=== PATIENT | female | born 1960 | race Hispanic/Latino ===

== ENCOUNTER → 2018-07-21 | Day surgery (SDC) | payer OTHER ==
[2018-07-18 13:35] LABS: BASOPHILS % 0.6 % (0.0-1.0); EOSINOPHILS # (AUTO) 0.1 (0.0-0.4); EOSINOPHILS % 1.7 % (0.0-6.0); HEMATOCRIT 36.7 % (34.2-44.1); HEMOGLOBIN 12.2 g/dL (12.0-16.0); LYMPHOCYTES # (AUTO) 2.2 (1.0-3.2); LYMPHOCYTES % 30.7 % (18.0-39.1); MEAN CORPUSCULAR HEMOGLOBIN 30.7 pg (28-32); MEAN CORPUSCULAR HGB CONC 33.2 g/dL (31-35); MEAN CORPUSCULAR VOLUME 92.2 fL (81-99); MONOCYTES # (AUTO) 0.4 (0.2-0.8); MONOCYTES % 5.8 % (4.4-11.3); NEUTROPHILS # (AUTO) 4.3 (2.1-6.9); NEUTROPHILS % 61.1 % (38.7-80.0); PLATELET COUNT 184 x10e3/uL (140-360); RED BLOOD COUNT 3.98 x10e6/uL (3.6-5.1); RED CELL DISTRIBUTION WIDTH 13.6 % (11.7-14.4)
--- NOTE | 2018-07-18 14:03 | Diagnostic Imaging Report ---
EXAMINATION: CHEST 2 VIEWS INDICATION: Preop. Right foot surgery. Foot pain. COMPARISON: None FINDINGS: TUBES and LINES: None. LUNGS: Lungs are well inflated. Lungs are clear. There is no evidence of pneumonia or pulmonary edema. PLEURA: No pleural effusion or pneumothorax. HEART AND MEDIASTINUM: The cardiomediastinal silhouette is unremarkable. BONES AND SOFT TISSUES: No acute osseous lesion. Soft tissues are unremarkable. UPPER ABDOMEN: No free air under the diaphragm. IMPRESSION: No acute thoracic abnormality. Signed by: Dr. Hua Garcia M.D. on 07/18/2018 1:59 PM
[2018-07-18 14:12] LABS: ANION GAP 13.2 mmol/L (8-16); BLOOD UREA NITROGEN 15 mg/dL (7-26); BUN/CREATININE RATIO 22 (6-25); CALCIUM 9.9 mg/dL (8.4-10.2); CARBON DIOXIDE 26 mmol/L (22-29); CHLORIDE 109 mmol/L (98-107); CREATININE, SERUM 0.67 mg/dL (0.57-1.11); EST GLOMERULAR FILTRATION RATE > 60 ML/MIN (60-); GLUCOSE 113 mg/dL (74-118); POTASSIUM 4.2 mmol/L (3.5-5.1); SODIUM 144 mmol/L (136-145)
[~2018-07-21] MED LIST: BUPIVACAINE HCL 0.5% 10ML MPF VIAL INJ ONE; CEFAZOLIN SOD 2 GM/D5W 50ML 50 ML IV ONE; DEXAMETHASONE SOD PHOS INJ 4 MG/ML VIAL ONE; FENTANYL CITRATE/PF 100MCG/2 ML INJ ONE; HYDROMORPHONE 2MG/ML 2 MG/ML ML ONE; KETOROLAC TROMETHAMINE 30 MG/ML VIAL ONE; LIDOCAINE HCL 2% LOCAL INJ 5 ML SDV VIAL INJ ONE; MEPERIDINE HCL INJ 50 MG/ML INJ ONE; MIDAZOLAM HCL 2 MG/2 ML VIAL ONE; MULTI-VITAMIN1 EACH PO; MUPIROCIN 2% OINT 22 GM TUBE ONE; ONDANSETRON HCL INJ 2 MG/ML VIAL ONE; PANTOPRAZOLE SO40 MG PO; PROPOFOL IV EMULSION 10 MG/ML 20 ML VIAL ONE; SEVOFLURANE INHAL SOLN 250 ML PEN BTL ONE; ZYRTEC10 M3 PO
--- OUTSIDE RECORDS SUMMARY | 2018-07-21 05:30 | XMS REPORT | Summary of Care ---
Author Author [facility] Organization [facility] Address Unknown Phone Unavailable Encounter HQ Lorrie_ellen(FIN) [id number] Date(s): 07/15/15 - 07/15/15 [facility] [address] [place] [address]- Discharge Disposition: Home Attending Physician: Magali Mena MD Referring Physician: Aleyda Mchugh DO Vital Signs No data available for this section Problem List Condition Effective Dates Status Health Status Informant Anxiety(Confirmed) Active BSO - Total Active abdominal hysterectomy and bilateral salpingo-oophorectom y(Confirmed) Hypertension(Confirm Active ed) Allergies, Adverse Reactions, Alerts Substance Reaction Severity Status Bactrim Active Demerol Itching Active hydrogen peroxide topical Active Levaquin Itching Active sulfa drugs Active Medications No data available for this section Results No data available for this section Immunizations No data available for this section Procedures Procedure Date Related Diagnosis Body Site CTR - Carpal tunnel release Hemorrhoidectomy Hysterectomy Meniscectomy of knee Tonsillectomy and adenoidectomy Social History Social History Type Response Alcohol Current Smoking Status Former smoker; Exposure to Tobacco Smoke None; Cigarette Smoking Last 365 Days No; Reg Smoking Cessation Counseling No Assessment and Plan No data available for this section
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
--- OUTSIDE RECORDS SUMMARY | 2018-07-21 05:30 | XMS REPORT | Continuity of Care Document ---
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 Radiologist. warmth and swelling COMPARISON: None TECHNIQUE: Sonographic evaluation of the left lower extremity veins was performed using high resolution B-mode imaging, along with pulse and color Doppler imaging. FINDINGS: Left lower extremity: The common femoral vein, superficial femoral vein, popliteal vein and visualized posterior tibial/calf veins are patent. There is no echogenic debris to suggest deep venous thrombosis. The saphenofemoral junction is normal. IMPRESSION: No deep venous thrombosis. SL: [id number] 06/03/2016 - - Read by: Magen Paulson MD Dictated Date/time: 06/03/16 09:50 Electronically Signed by: Magen Paulson MD 06/03/16 09:51 FINAL REPORT [facility] Platelet 201 K/CMM 133 - 450 06/02/2016 [facility] RDW 14.6 % 11.5 - 14.5 06/02/2016 [facility] MCHC 33.6 g/dL 32.0 - 36.0 06/02/2016 [facility] MCH 29.9 pg 27.0 - 31.0 06/02/2016 [facility] MCV 88.9 fL 80.0 - 98.0 06/02/2016 [facility] MPV 9.1 fL 7.4 - 10.4 06/02/2016 [facility] Hgb 12.1 g/dL 12.0 - 16.0 06/02/2016 [facility] Hct 36.2 % 36.0 - 48.0 06/02/2016 [facility] RBC 4.07 M/CMM 4.20 - 5.40 06/02/2016 [facility] WBC 14.2 K/CMM 3.7 - 10.4 06/02/2016 [facility] Basophils 0.1 % 0.0 - 1.0 06/02/2016 [facility] Lymphocytes 8.2 % 20.0 - 40.0 06/02/2016 [facility] Monocytes 8.3 % 2.0 - 12.0 06/02/2016 [facility] Segs 83.4 % 45.0 - 75.0 06/02/2016 [facility] Lymphocytes # 1.2 K/CMM 1.0 - 5.5 06/02/2016 [facility] Monocytes # 1.2 K/CMM 0.0 - 0.8 06/02/2016 [facility] Segs-Bands # 11.9 K/CMM 1.5 - 8.1 06/02/2016 [facility] CHEM PANEL eGFR 64 mL/min/1.73m2 06/01/2016 Result Comment: The eGFR is calculated using the CKD-EPI formula. In most young, healthy individuals the eGFR will be >90 mL/min/1.73m2. The eGFR declines with age. An eGFR of 60-89 may be normal in some populations, particularly the elderly, for whom the CKD-EPI formula has not been extensively validated. Use of the eGFR is not recommended in the following populations: Individuals with unstable creatinine concentrations, including patients and those with serious co-morbid conditions. Patients with extremes in muscle mass or diet. The data above are obtained from the National Kidney Disease Education Program (NKDEP) which additionally recommends that when the eGFR is used in patients with extremes of body mass index for purposes of drug dosing, the eGFR should be multiplied by the estimated BMI. [facility] CHEM PANEL Creatinine Lvl 1.00 mg/dL 0.50 - 1.40 06/01/2016 [facility] HEMATOLOGY Platelet 228 K/CMM 133 - 450 06/01/2016 [facility] HEMATOLOGY PTT 22.4 s 22.9 - 35.8 06/01/2016 [facility] Knee 1-2 Views unilateral DX Knee 1-2 Views unilateral DX Study: Left knee, 2 views Clinical Indication: Joint deformities Comparison: None FINDINGS: Multiple views of the left knee show changes of total knee arthroplasty and patellar resurfacing with overlying soft tissue swelling, soft tissue gas, and surgical skin misha. Anatomic alignment is maintained about the knee. No perihardware fracture is seen. IMPRESSION: Status post left total knee arthroplasty. SL: [id number] 06/01/2016 - - Read by: Merlin Osborn MD Dictated Date/time: 06/01/16 14:02 Electronically Signed by: Merlin Osborn MD 06/01/16 14:03 FINAL REPORT [facility] BLOOD BANK RESULTS ABO/Rh A POS 05/28/2016 [facility] BLOOD BANK RESULTS Antibody Scrn Negative (05/28/16 10:15 AM) 05/28/2016 [facility] CHEM PANEL eGFR 83 mL/min/1.73m2 05/28/2016 Result Comment: The eGFR is calculated using the CKD-EPI formula. In most young, healthy individuals the eGFR will be >90 mL/min/1.73m2. The eGFR declines with age. An eGFR of 60-89 may be normal in some populations, particularly the elderly, for whom the CKD-EPI formula has not been extensively validated. Use of the eGFR is not recommended in the following populations: Individuals with unstable creatinine concentrations, including patients and those with serious co-morbid conditions. Patients with extremes in muscle mass or diet. The data above are obtained from the National Kidney Disease Education Program (NKDEP) which additionally recommends that when the eGFR is used in patients with extremes of body mass index for purposes of drug dosing, the eGFR should be multiplied by the estimated BMI. [facility] CHEM PANEL CO2 29 meq/L 24 - 32 05/28/2016 [facility] CHEM PANEL Calcium Lvl 9.3 mg/dL 8.5 - 10.5 05/28/2016 [facility] CHEM PANEL Creatinine Lvl 0.80 mg/dL 0.50 - 1.40 05/28/2016 [facility] CHEM PANEL Potassium Lvl 3.9 meq/L 3.5 - 5.1 05/28/2016 [facility] CHEM PANEL Chloride Lvl 102 meq/L 95 - 109 05/28/2016 [facility] CHEM PANEL Sodium Lvl 139 meq/L 135 - 145 05/28/2016 [facility] CHEM PANEL BUN 16 mg/dL 7 - 22 05/28/2016 [facility] CHEM PANEL Glucose Lvl 94 mg/dL 70 - 99 05/28/2016 [facility] CHEM PANEL AGAP 11.9 meq/L 10.0 - 20.0 05/28/2016 [facility] HEMATOLOGY Monocytes 7.3 % 2.0 - 12.0 05/28/2016 [facility] HEMATOLOGY Segs 66.9 % 45.0 - 75.0 05/28/2016 [facility] HEMATOLOGY Monocytes # 0.8 K/CMM 0.0 - 0.8 05/28/2016 [facility] HEMATOLOGY Lymphocytes 24.2 % 20.0 - 40.0 05/28/2016 [facility] HEMATOLOGY Eosinophils 0.9 % 0.0 - 4.0 05/28/2016 [facility] HEMATOLOGY Basophils 0.7 % 0.0 - 1.0 05/28/2016 [facility] HEMATOLOGY Segs-Bands # 7.0 K/CMM 1.5 - 8.1 05/28/2016 [facility] HEMATOLOGY Lymphocytes # 2.5 K/CMM 1.0 - 5.5 05/28/2016 [facility] HEMATOLOGY Eosinophils # 0.1 K/CMM 0.0 - 0.5 05/28/2016 [facility] HEMATOLOGY Basophils # 0.1 K/CMM 0.0 - 0.2 05/28/2016 [facility] HEMATOLOGY Hct 42.5 % 36.0 - 48.0 05/28/2016 [facility] HEMATOLOGY Hgb 13.8 g/dL 12.0 - 16.0 05/28/2016 [facility] HEMATOLOGY WBC 10.5 K/CMM 3.7 - 10.4 05/28/2016 [facility] HEMATOLOGY RBC 4.80 M/CMM 4.20 - 5.40 05/28/2016 [facility] HEMATOLOGY MCV 88.4 fL 80.0 - 98.0 05/28/2016 [facility] HEMATOLOGY MCH 28.8 pg 27.0 - 31.0 05/28/2016 [facility] MCHC 32.5 g/dL 32.0 - 36.0 05/28/2016 [facility] RDW 14.8 % 11.5 - 14.5 05/28/2016 [facility] MPV 9.4 fL 7.4 - 10.4 05/28/2016 [facility] PT 12.5 s 12.0 - 14.7 05/28/2016 [facility] HEMATOLOGY PTT 24.8 s 22.9 - 35.8 05/28/2016 [facility] HEMATOLOGY INR 0.91 0.85 - 1.17 05/28/2016 [facility] BLOOD BANK RESULTS RBC product Product available (05/28/16 10:03 AM) 05/28/2016 [facility] Breast Complete Manan US Breast Complete Manan US - BREAST COMPLETE MANAN US ULTRASOUND OF BOTH BREASTS AND BOTH AXILLA: 05/03/2016 CLINICAL: Pain abnormal mammogram, mammographic nodule/density. Comparison is made to exams dated: 05/03/2016 mammogram, 07/15/2015 mammogram - [facility], 05/07/2014 mammogram - [facility], 04/24/2013 mammogram - [facility] and 07/17/2010 mammogram - [facility]. Color flow and real-time ultrasound of both breasts and both axilla were performed. Davila scale images of the real-time examination were reviewed. For both breasts, all 4 quadrants, the retroareolar region and axilla are evaluated in this exam. There is a small benign cyst left breast at 12 o'clock that correlates with mammography. There also is a small benign intramammary node left breast at 1 o'clock that correlates with mammography. No abnormalities were seen sonographically in the right breast or either axilla. There has been no significant interval change. IMPRESSION: BENIGN There is no sonographic evidence of malignancy. There is no suspicious sonographic abnormality seen in the left breast to correspond with the initial mammographic density which is consistent with normal fibroglandular tissue. There is no mammographic or sonographic abnormality seen in the right breast to correspond with the pain. A 1 year screening mammogram is recommended. The results were reviewed with the patient. Moshe cobb/:05/03/2016 09:01:43 Instructional Services Librarian: Donny Subramanian, [facility] This exam was dictated and interpreted by [id number] for [facility]. letter sent: Normal exam Ultrasound BI-RADS: 2 Benign 05/03/2016 - - Read by: Moshe Vanegas MD Dictated Date/time: 05/03/16 09:01 Electronically Signed by: Moshe Vanegas MD 05/03/16 09:01 FINAL REPORT [facility] Digital Mammo DX Manan MA Digital Mammo DX Manan MA - DIGITAL MAMMO DX MANAN MA BILATERAL DIGITAL DIAGNOSTIC MAMMOGRAM WITH CAD: 05/03/2016 CLINICAL: Breast Pain. Current study was evaluated with a Computer Aided Detection (CAD) system. Comparison is made to exams dated: 07/15/2015 mammogram - [facility], 05/07/2014 mammogram - [facility], 04/24/2013 mammogram - [facility], 07/17/2010 mammogram, 03/06/2008 mammogram - [facility] and 09/08/2004. There are scattered fibroglandular densities in both breasts. There are benign appearing densities in both breasts. There also are benign appearing calcifications and an intramammary node in the left breast. There is a possible nodule in the left breast central to the nipple posterior depth. This is not seen in additional views. This correlates as an incidental finding. No other significant masses, calcifications, or other findings are seen in either breast. IMPRESSION: INCOMPLETE: NEEDS ADDITIONAL IMAGING EVALUATION The possible nodule in the left breast is indeterminate. An ultrasound is recommended. There is no mammographic abnormality seen in the right breast to correspond with the pain, however ultrasound is recommended. The results were reviewed with the patient. SUMMARY: Ultrasound will be performed at this time; please see dedicated separate report. Moshe cobb/penroger:05/03/2016 08:59:11 Instructional Services Librarian: Josephine Brannon, [facility] This exam was dictated and interpreted by [id number] for [facility]. Mammogram BI-RADS: 0 Indeterminate 05/03/2016 - - Read by: Moshe Vanegas MD Dictated Date/time: 05/03/16 08:59 Electronically Signed by: Moshe Vanegas MD 05/03/16 08:59 FINAL REPORT [facility] Pelvis Transvaginal US Pelvis Transvaginal US Patient Name: EDUARDO ANGELES : 1960; Age: 56 years y/o Female MR: [id number] Study: Pelvis Transvaginal US 05/03/2016 7:07 AM CDT Ordering Physician: Magali Mena MD Clinical Indication: pelvic pain; Comparison: 04/24/2013 Transvaginal pelvic ultrasound exam FINDINGS: See impression. IMPRESSION: Uterus not visualized. Ovaries not visualized. No adnexal mass or pathologic fluid is otherwise evident. SL: [id number] 05/03/2016 - - Read by: Georges Lockett MD Dictated Date/time: 05/03/16 12:07 Electronically Signed by: Georges Lockett MD 05/03/16 12:09 FINAL REPORT [facility] CHEM PANEL Alk Phos 57 unit/L 39 - 136 08/04/2015 [facility] CHEM PANEL AST 34 unit/L 0 - 37 08/04/2015 [facility] CHEM PANEL Total Protein 7.3 g/dL 6.4 - 8.4 08/04/2015 [facility] CHEM PANEL Albumin Lvl 3.7 g/dL 3.5 - 5.0 08/04/2015 [facility] CHEM PANEL A/G Ratio 1.0 0.7 - 1.6 08/04/2015 [facility] CHEM PANEL Globulin 3.6 g/dL 2.0 - 4.0 08/04/2015 [facility] CHEM PANEL ALT 83 unit/L 0 - 65 08/04/2015 [facility] CHEM PANEL Bili Indirect 0.3 mg/dL 0.0 - 1.0 08/04/2015 [facility] CHEM PANEL Bili Total 0.4 mg/dL 0.2 - 1.3 08/04/2015 [facility] CHEM PANEL Bili Direct 0.1 mg/dL 0.0 - 0.3 08/04/2015 [facility] ELECTROLYTES AGAP 10.8 meq/L 10.0 - 20.0 08/04/2015 [facility] ELECTROLYTES CO2 29 meq/L 24 - 32 08/04/2015 [facility] ELECTROLYTES Sodium Lvl 140 meq/L 135 - 145 08/04/2015 [facility] ELECTROLYTES Potassium Lvl 3.8 meq/L 3.5 - 5.1 08/04/2015 [facility] ELECTROLYTES Chloride Lvl 104 meq/L 95 - 109 08/04/2015 [facility] Digital Mammo Screening Manan MA Digital Mammo Screening Manan MA - DIGITAL MAMMO SCREENING MANAN MA BILATERAL DIGITAL SCREENING MAMMOGRAM WITH CAD: 07/15/2015 CLINICAL: Routine. Current study was evaluated with a Computer Aided Detection (CAD) system. Comparison is made to exams dated: 05/07/2014 mammogram - [facility], 04/24/2013 mammogram - [facility], 07/17/2010 mammogram and 03/06/2008 mammogram - [facility]. There are scattered fibroglandular densities in both breasts. There are benign appearing densities in both breasts. There also are benign appearing calcifications and an intramammary node in the left breast. No significant masses, calcifications, or other findings are seen in either breast. There has been no significant interval change. IMPRESSION: BENIGN There is no mammographic evidence of malignancy. A 1 year screening mammogram is recommended. Moshe cobb/sara:07/15/2015 14:02:01 Instructional Services Librarian: Sharlene Chase, [facility] This exam was dictated and interpreted by [id number] for [facility]. letter sent: Normal exam Mammogram BI-RADS: 2 Benign 07/15/2015 - - Read by: Moshe Vanegas MD Dictated Date/time: 07/15/15 14:02 Electronically Signed by: Moshe Vanegas MD 07/15/15 14:02 FINAL REPORT [facility] CHEM PANEL Amylase Lvl 39 unit/L 25 - 115 06/24/2015 [facility] CHEM PANEL eGFR 78 mL/min/1.73m2 06/24/2015 Result Comment: The eGFR is calculated using the CKD-EPI formula. In most young, healthy individuals the eGFR will be >90 mL/min/1.73m2. The eGFR declines with age. An eGFR of 60-89 may be normal in some populations, particularly the elderly, for whom the CKD-EPI formula has not been extensively validated. Use of the eGFR is not recommended in the following populations: Individuals with unstable creatinine concentrations, including patients and those with serious co-morbid conditions. Patients with extremes in muscle mass or diet. The data above are obtained from the National Kidney Disease Education Program (NKDEP) which additionally recommends that when the eGFR is used in patients with extremes of body mass index for purposes of drug dosing, the eGFR should be multiplied by the estimated BMI. [facility] CHEM PANEL Bili Total 0.4 mg/dL 0.2 - 1.3 06/24/2015 [facility] CHEM PANEL Alk Phos 59 unit/L 39 - 136 06/24/2015 [facility] CHEM PANEL ALT 87 unit/L 0 - 65 06/24/2015 [facility] CHEM PANEL AST 40 unit/L 0 - 37 06/24/2015 [facility] CHEM PANEL Albumin Lvl 3.6 g/dL 3.5 - 5.0 06/24/2015 [facility] CHEM PANEL Total Protein 7.3 g/dL 6.4 - 8.4 06/24/2015 [facility] CHEM PANEL CO2 27 meq/L 24 - 32 06/24/2015 [facility] CHEM PANEL BUN 18 mg/dL 7 - 22 06/24/2015 [facility] CHEM PANEL Creatinine Lvl 0.85 mg/dL 0.50 - 1.40 06/24/2015 [facility] CHEM PANEL Glucose Lvl 150 mg/dL 70 - 99 06/24/2015 [facility] CHEM PANEL Chloride Lvl 101 meq/L 95 - 109 06/24/2015 [facility] CHEM PANEL Potassium Lvl 3.6 meq/L 3.5 - 5.1 06/24/2015 [facility] CHEM PANEL Sodium Lvl 139 meq/L 135 - 145 06/24/2015 [facility] CHEM PANEL Calcium Lvl 9.3 mg/dL 8.5 - 10.5 06/24/2015 [facility] CHEM PANEL AGAP 14.6 meq/L 10.0 - 20.0 06/24/2015 [facility] CHEM PANEL A/G Ratio 1.0 0.7 - 1.6 06/24/2015 [facility] CHEM PANEL B/C Ratio 21 6 - 25 06/24/2015 [facility] CHEM PANEL Globulin 3.7 g/dL 2.0 - 4.0 06/24/2015 [facility] HEMATOLOGY WBC 8.6 K/CMM 3.7 - 10.4 06/24/2015 [facility] HEMATOLOGY RBC 4.75 M/CMM 4.20 - 5.40 06/24/2015 [facility] HEMATOLOGY Hgb 14.2 g/dL 12.0 - 16.0 06/24/2015 [facility] HEMATOLOGY Hct 42.5 % 36.0 - 48.0 06/24/2015 [facility] HEMATOLOGY MCV 89.3 fL 80.0 - 98.0 06/24/2015 [facility] HEMATOLOGY MCH 29.9 pg 27.0 - 31.0 06/24/2015 [facility] HEMATOLOGY RDW 13.9 % 11.5 - 14.5 06/24/2015 [facility] HEMATOLOGY MCHC 33.5 g/dL 32.0 - 36.0 06/24/2015 [facility] HEMATOLOGY Platelet 225 K/CMM 133 - 450 06/24/2015 [facility] HEMATOLOGY MPV 10.1 fL 7.4 - 10.4 06/24/2015 [facility] HEMATOLOGY Monocytes # 0.6 K/CMM 0.0 - 0.8 06/24/2015 [facility] HEMATOLOGY Lymphocytes # 2.2 K/CMM 1.0 - 5.5 06/24/2015 [facility] HEMATOLOGY Segs-Bands # 5.6 K/CMM 1.5 - 8.1 06/24/2015 [facility] HEMATOLOGY Eosinophils 1.3 % 0.0 - 4.0 06/24/2015 [facility] HEMATOLOGY Basophils 0.6 % 0.0 - 1.0 06/24/2015 [facility] HEMATOLOGY Monocytes 7.4 % 2.0 - 12.0 06/24/2015 [facility] HEMATOLOGY Segs 65.1 % 45.0 - 75.0 06/24/2015 [facility] HEMATOLOGY Lymphocytes 25.6 % 20.0 - 40.0 06/24/2015 [facility] HEMATOLOGY Eosinophils # 0.1 K/CMM 0.0 - 0.5 06/24/2015 [facility] URINE AND STOOL UA Urobilinogen <=1.0 mg/dL 0.1 - 1.0 06/24/2015 [facility] URINE AND STOOL UA Blood Negative (06/24/15 2:50 PM) Negative 06/24/2015 [facility] URINE AND STOOL UA Bili Negative *NA* (06/24/15 2:50 PM) Negative 06/24/2015 [facility] URINE AND STOOL UA Nitrite Negative (06/24/15 2:50 PM) Negative 06/24/2015 [facility] URINE AND STOOL UA Glucose Negative mg/dL Negative mg/dL 06/24/2015 [facility] URINE AND STOOL UA Ketones Negative mg/dL Negative mg/dL 06/24/2015 [facility] URINE AND STOOL UA WBC 1 /HPF 0 - 5 06/24/2015 [facility] URINE AND STOOL UA Leuk Est Negative (06/24/15 2:50 PM) Negative 06/24/2015 [facility] URINE AND STOOL UA Sq Epi Occasional /LPF Few /LPF 06/24/2015 [facility] URINE AND STOOL UA RBC 1 /HPF 0 - 2 06/24/2015 [facility] URINE AND STOOL UA Turbidity Clear (06/24/15 2:50 PM) Clear 06/24/2015 [facility] URINE AND STOOL UA Spec Grav 1.021 <=1.030 06/24/2015 [facility] URINE AND STOOL UA Color Yellow *NA* (06/24/15 2:50 PM) Yellow 06/24/2015 [facility] URINE AND STOOL UA pH 6.0 5.0 - 8.0 06/24/2015 [facility] URINE AND STOOL UA Protein Negative mg/dL Negative mg/dL 06/24/2015 [facility] Digital Mammo Screening Manan MA Digital Mammo Screening Manan MA - DIGITAL MAMMO SCREENING MANAN MA BILATERAL DIGITAL SCREENING MAMMOGRAM WITH CAD: 05/07/2014 CLINICAL: Well Woman. Current study was evaluated with a Computer Aided Detection (CAD) system. Comparison is made to exams dated: 04/24/2013 mammogram - [facility], 07/17/2010 mammogram and 03/06/2008 mammogram - [facility]. The tissue of both breasts is heterogeneously dense, which could obscure detection of small masses. Patient complains of intermittent breast pain and/or tenderness. No suspicious mammographic correlate is present. There are benign appearing densities in both breasts. There also are benign appearing calcifications and an intramammary node in the left breast. No significant masses, calcifications, or other findings are seen in either breast. There has been no significant interval change. IMPRESSION: BENIGN Clinical management of the patient's breast complaints is recommended. There is no mammographic evidence of malignancy. A screening mammogram in one year is recommended. Moshe cobb/sara:05/07/2014 10:21:49 Instructional Services Librarian: Saritha GIRON(R)(M), [facility] This exam was dictated and interpreted by [id number] for ELISSA Iglesias 15. letter sent: Normal exam Mammogram BI-RADS: 2 Benign 05/07/2014 - - Read by: Moshe Vanegas MD Dictated Date/time: 05/07/14 10:21 Electronically Signed by: Moshe Vanegas MD 05/07/14 10:21 FINAL REPORT [facility] Vital Signs Vital Sign Value Date Comments Source Systolic (mm Hg) 110 06/03/2016 [facility] Diastolic (mm Hg) 75 06/03/2016 [facility] Heart Rate 68 06/03/2016 [facility] Respitory Rate 16 06/03/2016 [facility] Temperature Oral (F) 98.9 F 06/03/2016 [facility] Systolic (mm Hg) 103 06/03/2016 [facility] Diastolic (mm Hg) 67 06/03/2016 [facility] Heart Rate 66 06/03/2016 [facility] Respitory Rate 16 06/03/2016 [facility] Temperature Oral (F) 99.4 F 06/03/2016 [facility] Temperature Oral (F) 99.5 F 06/03/2016 [facility] Heart Rate 74 06/03/2016 [facility] Respitory Rate 18 06/03/2016 [facility] Systolic (mm Hg) 113 06/03/2016 [facility] Diastolic (mm Hg) 71 06/03/2016 [facility] Weight 136.364 05/28/2016 [facility] BMI Calculated 48.52 05/28/2016 [facility] Height 167.64 cm 05/28/2016 [facility] Respitory Rate 20 08/13/2015 [facility] Systolic (mm Hg) 136 08/13/2015 [facility] Diastolic (mm Hg) 84 08/13/2015 [facility] Respitory Rate 21 08/13/2015 [facility] Systolic (mm Hg) 112 08/13/2015 [facility] Diastolic (mm Hg) 74 08/13/2015 [facility] Systolic (mm Hg) 120 08/13/2015 [facility] Diastolic (mm Hg) 76 08/13/2015 [facility] Respitory Rate 10 08/13/2015 [facility] Height 167.64 cm 08/04/2015 [facility] Weight 131.818 08/04/2015 [facility] BMI Calculated 46.91 08/04/2015 [facility] Temperature Oral (F) 97.7 F 08/04/2015 [facility] Heart Rate 56 08/04/2015 [facility] Systolic (mm Hg) 111 06/26/2015 [facility] Diastolic (mm Hg) 51 06/26/2015 [facility] Systolic (mm Hg) 135 06/26/2015 [facility] Diastolic (mm Hg) 59 06/26/2015 [facility] Systolic (mm Hg) 100 06/26/2015 [facility] Diastolic (mm Hg) 65 06/26/2015 [facility] Respitory Rate 20 06/26/2015 [facility] Respitory Rate 21 06/26/2015 [facility] Respitory Rate 17 06/26/2015 [facility] Heart Rate 62 06/24/2015 [facility] Temperature Oral (F) 98.3 F 06/24/2015 [facility] Weight 130.909 06/24/2015 [facility] BMI Calculated 46.58 06/24/2015 [facility] Height 167.64 cm 06/24/2015 [facility] Encounters Location Location Details Encounter Type Encounter Number Reason For Visit Attending Provider ADM Date DC Date Status Source [facility] [place] [facility] [id number] Magali Mena 05/07/2014 05/08/2014 [facility] OBS Day Surgery [id number] Go Medeiros 06/26/2015 06/26/2015 [facility] Outpatient [id number] Aleyda Mchugh 07/15/2015 07/16/2015 [facility] Bedded Outpatient [id number] Nagi Hernadez 08/13/2015 08/13/2015 [facility] OP Therapy Patients [id number] Aleyda Mchugh 09/24/2015 10/24/2015 [facility] [id number] Aleyda Mchugh 11/19/2015 12/19/2015 [facility] [id number] Aleyda Mchugh 12/24/2015 01/23/2016 [facility] [id number] Aleyda Mchugh 01/23/2016 02/22/2016 [facility] Outpatient [id number] Magali Mena 05/03/2016 05/04/2016 [facility] Inpatient [id number] Sctot Gutierrez 06/01/2016 06/03/2016 [facility] OP Therapy Patients [id number] Scott Gutierrez 06/04/2016 07/04/2016 [facility] [id number] Scott Gutierrez 07/05/2016 08/04/2016 [facility] [id number] Scott Gutierrez 08/05/2016 09/04/2016 [facility] [place] [facility] Di[facility] [id number] Magali Mena 08/09/2017 08/10/2017 [facility] [place] Procedures Procedure Code Date Perfomer Comments Source CTR - Carpal tunnel release [id number] [facility] Hemorrhoidectomy [id number] [facility] Hysterectomy [id number] [facility] Meniscectomy of knee [id number] [facility] Tonsillectomy and adenoidectomy [id number] [facility] - Carpal tunnel release [id number] [facility] [id number] [facility] [id number] [facility] Menis[facility] of knee [id number] [facility] Tonsillectomy and adenoidectomy [id number] [facility] CTR - Carpal tunnel release [id number] [facility] [place] Hemorrhoidectomy [id number] [facility] [place] Hysterectomy [id number] [facility] [place] Meniscectomy of knee [id number] [facility] [place] Tonsillectomy and adenoidectomy [id number] [facility] [place]
--- OUTSIDE RECORDS SUMMARY | 2018-07-21 05:30 | XMS REPORT | Summary of Care ---
Author Organization Unknown Address Unknown Phone Unavailable Encounter HQ Norbertor_ellen(CHULA) [id number] Date(s): 05/07/14 - 05/07/14 [facility] Outpatient Imaging [place] [address] [place], [place] [id number] [place] [address] Discharge Disposition: Home Physician Attending: Magali Mena MD Reason for Visit V76.12 - SCREEN MAMMOGRA Problem List Condition Effective Dates Status Health Status Informant Anxiety(Confirmed) Active BSO - Total Active abdominal hysterectomy and bilateral salpingo-oophorectom y(Confirmed) Hypertension(Confirm Active ed) Allergies, Adverse Reactions, Alerts Substance Reaction Severity Status Demerol Itching Active hydrogen peroxide topical Active Levaquin Itching Active Medications No data available for this section Medications Administered During Your Visit No data available for this section Immunizations No data available for this section
--- OUTSIDE RECORDS SUMMARY | 2018-07-21 05:30 | XMS REPORT | Summary of Care ---
Author Author [facility] Organization [facility] Address Unknown Phone Unavailable Encounter HQ Suma(CHULA) [id number] Date(s): 06/26/15 - 06/26/15 [facility] [address] [place] [address]- Discharge Disposition: Home Attending Physician: Go Medeiros MD Referring Physician: Go Medeiros MD Vital Signs 1 2 3 Most recent to oldest [Reference Range]: 167.64 cm (06/24/15 2:29 PM) Height 98.3 DegF (06/24/15 2:34 PM) Temperature Oral [96.4-99.1 DegF] 111/51 mmHg (06/26/15 11:45 AM) 135/59 mmHg (06/26/15 11:30 AM) 100/65 mmHg (06/26/15 11:15 AM) Blood Pressure [90-140/60-90 mmHg] 20 BRMIN (06/26/15 10:45 AM) 21 BRMIN *HI* (06/26/15 10:30 AM) 17 BRMIN (06/26/15 10:15 AM) Respiratory Rate [14-20 BRMIN] 62 bpm (06/24/15 2:34 PM) Peripheral Pulse Rate [60-100 bpm] 130.909 kg (06/24/15 2:29 PM) Weight 46.58 m2 (06/24/15 2:29 PM) Body Mass Index Problem List Condition Effective Dates Status Health Status Informant Anxiety(Confirmed) Active BSO - Total Active abdominal hysterectomy and bilateral salpingo-oophorectom y(Confirmed) Hypertension(Confirm Active ed) Allergies, Adverse Reactions, Alerts Substance Reaction Severity Status Bactrim Active Demerol Itching Active hydrogen peroxide topical Active Levaquin Itching Active sulfa drugs Active Medications albuterol 0.083% inhalation solution 2.49 mg, Route: NEB, Q20Min, Dosing Weight 130.909, kg, PRN Wheezing, Priority: STAT, Start date: 06/26/15 10:09:00, Duration: 30 day, Stop date: 07/26/15 10:08 :00 Start Date: 06/26/15 Stop Date: 06/26/15 Status: Discontinued Ancef 3 gm, Route: IVPB, ONCE, Dosing Weight 130.909, kg, Start date: 06/26/15 8:26:00 , Duration: 1 doses or times, Stop date: 06/26/15 8:26:00, Surgical Prophylaxis Only; For patients > 120 kg Start Date: 06/26/15 Stop Date: 06/26/15 Status: Completed Claritin-D oral tablet, extended release 1 tab, PO, Daily, # 28 tab, 0 Refill(s) Start Date: 06/24/15 Stop Date: 07/08/15 Status: Ordered fentaNYL 25 microgram, Route: IVP, Q5Min, Dosing Weight 130.909, kg, PRN Pain Score 4-6, Start date: 06/26/15 10:09:00, Duration: 4 doses or times, Stop date: Limited # of times Start Date: 06/26/15 Stop Date: 06/26/15 Status: Discontinued fentaNYL 50 microgram, Route: IVP, Q5Min, Dosing Weight 130.909, kg, PRN Pain Score 7-10, Start date: 06/26/15 10:09:00, Duration: 2 doses or times, Stop date: Limited # of times Start Date: 06/26/15 Stop Date: 06/26/15 Status: Discontinued flumazenil 0.2 mg, Route: IVP, PRN, Dosing Weight 130.909, kg, PRN Benzodiazepine Reversal, Initial dose, Start date: 06/26/15 10:09:00, Duration: 30 day, Stop date: 07/26 10:08:00 Start Date: 06/26/15 Stop Date: 06/26/15 Status: Discontinued hydromorphone 0.5 mg, Route: IVP, Q5Min, Dosing Weight 130.909, kg, PRN Pain Score 7-10, Start date: 06/26/15 10:09:00, Duration: 4 doses or times, Stop date: Limited # of ti mes Start Date: 06/26/15 Stop Date: 06/26/15 Status: Discontinued ketOROLAC 30 mg, Route: IVP, ONCE, Dosing Weight 130.909, kg, Start date: 06/26/15 10:09:0 0, Duration: 1 doses or times, Stop date: 06/26/15 10:09:00 Start Date: 06/26/15 Stop Date: 06/26/15 Status: Discontinued Lactated Ringers Injection IV 1000 mL 1,000 mL, Rate: 25 ml/hr, Infuse over: 40 hr, Route: IV, Dosing Weight 130.909 k g, Total Volume: 1,000, Start date: 06/26/15 9:22:00, Duration: 30 day, Stop rony e: 07/26/15 9:21:00 Start Date: 06/26/15 Stop Date: 06/26/15 Status: Discontinued levocetirizine 5 mg oral tablet 5 mg=1 tab, PO, Bedtime, PRN as needed for allergy symptoms, # 30 tab, 0 Refill( s) Start Date: 06/24/15 Stop Date: 07/24/15 Status: Ordered metoclopramide 10 mg, Route: IVP, Drug form: INJ, ONCE, Dosing Weight 130.909, kg, Start date: 06/26/15 11:04:00, Stop date: 06/26/15 11:04:00 Start Date: 06/26/15 Stop Date: 06/26/15 Status: Completed morphine Sulfate 2 mg, Route: IVP, Q5Min, Dosing Weight 130.909, kg, PRN Pain Score 4-6, Start da te: 06/26/15 10:09:00, Duration: 5 doses or times, Stop date: Limited # of times Start Date: 06/26/15 Stop Date: 06/26/15 Status: Discontinued morphine Sulfate 4 mg, Route: IVP, Q5Min, Dosing Weight 130.909, kg, PRN Pain Score 7-10, Start d ate: 06/26/15 10:09:00, Duration: 3 doses or times, Stop date: Limited # of time s Start Date: 06/26/15 Stop Date: 06/26/15 Status: Discontinued naloxone 0.04 mg, Route: IVP, Q2MIN, Dosing Weight 130.909, kg, PRN Narcotic Reversal, St art date: 06/26/15 10:09:00, Duration: 8 doses or times, Stop date: Limited # of times Start Date: 06/26/15 Stop Date: 06/26/15 Status: Discontinued ondansetron 4 mg, Route: IVP, ONCE, Dosing Weight 130.909, kg, PRN Nausea & Vomiting, Start date: 06/26/15 10:09:00 Start Date: 06/26/15 Stop Date: 06/26/15 Status: Discontinued oxyCODONE 10 mg, Route: PO, Drug form: TAB, Q4H, Dosing Weight 130.909, kg, PRN Pain Score 7-10, Start date: 06/26/15 10:09:00, Duration: 30 day, Stop date: 07/26/15 10:0 8:00 Start Date: 06/26/15 Stop Date: 06/26/15 Status: Discontinued oxyCODONE 5 mg, Route: PO, Drug form: TAB, Q4H, Dosing Weight 130.909, kg, PRN Pain Score 4-6, Start date: 06/26/15 10:09:00, Duration: 30 day, Stop date: 07/26/15 10:08: 00 Start Date: 06/26/15 Stop Date: 06/26/15 Status: Discontinued oxyCODONE 5 mg/5 mL oral solution 5 mg, Route: NG, Drug form: LIQ, Q4H, Dosing Weight 130.909, kg, PRN Pain Score 4-6, Start date: 06/26/15 10:09:00, Duration: 30 day, Stop date: 07/26/15 10:08: 00 Start Date: 06/26/15 Stop Date: 06/26/15 Status: Discontinued oxyCODONE 5 mg/5 mL oral solution 10 mg, Route: NG, Drug form: LIQ, Q4H, Dosing Weight 130.909, kg, PRN Pain Score 7-10, Start date: 06/26/15 10:09:00, Duration: 30 day, Stop date: 07/26/15 10:0 8:00 Start Date: 06/26/15 Stop Date: 06/26/15 Status: Discontinued Sodium Chloride 0.9% IV 1000 mL 1,000 mL, Rate: 25 ml/hr, Infuse over: 40 hr, Route: IV, Dosing Weight 130.909 k g, Total Volume: 1,000, Start date: 06/26/15 9:22:00, Duration: 30 day, Stop rony e: 07/26/15 9:21:00 Start Date: 06/26/15 Stop Date: 06/26/15 Status: Discontinued trazodone 50 mg oral tablet 50 mg=1 tab, PO, Bedtime, # 30 tab, 1 Refill(s) Start Date: 06/24/15 Status: Ordered Tylenol with Codeine #3 oral tablet 1 tab, PO, Q6H, PRN for pain, # 15 tab, 0 Refill(s) Start Date: 06/26/15 Stop Date: 06/27/15 Status: Completed venlafaxine 37.5 mg oral tablet 37.5 mg=1 tab, PO, BID, # 60 tab, 0 Refill(s) Start Date: 06/24/15 Status: Ordered Results ELECTROLYTES Most recent to 1 oldest [Reference Range]: Sodium Lvl [135-145 139 mEq/L mEq/L] (06/24/15 2:50 PM) Potassium Lvl 3.6 mEq/L [3.5-5.1 mEq/L] (06/24/15 2:50 PM) Chloride Lvl [95-109 101 mEq/L mEq/L] (06/24/15 2:50 PM) CO2 [24-32 mEq/L] 27 mEq/L (06/24/15 2:50 PM) AGAP [10.0-20.0 14.6 mEq/L mEq/L] (06/24/15 2:50 PM) CHEM PANEL Most recent to 1 oldest [Reference Range]: Creatinine Lvl 0.85 mg/dL [0.50-1.40 mg/dL] (06/24/15 2:50 PM) eGFR 78 mL/min/1.73m2 1 *NA* (06/24/15 2:50 PM) BUN [7-22 mg/dL] 18 mg/dL (06/24/15 2:50 PM) B/C Ratio [6-25] 21 (06/24/15 2:50 PM) Glucose Lvl [70-99 150 mg/dL mg/dL] *HI* (06/24/15 2:50 PM) Total Protein 7.3 g/dL [6.4-8.4 g/dL] (06/24/15 2:50 PM) Albumin Lvl [3.5-5.0 3.6 g/dL g/dL] (06/24/15 2:50 PM) Globulin [2.0-4.0 3.7 g/dL g/dL] (06/24/15 2:50 PM) A/G Ratio [0.7-1.6] 1.0 (06/24/15 2:50 PM) Calcium Lvl 9.3 mg/dL [8.5-10.5 mg/dL] (06/24/15 2:50 PM) ALT [0-65 unit/L] 87 unit/L *HI* (06/24/15 2:50 PM) AST [0-37 unit/L] 40 unit/L *HI* (06/24/15 2:50 PM) Alk Phos [39-136 59 unit/L unit/L] (06/24/15 2:50 PM) Bili Total [0.2-1.3 0.4 mg/dL mg/dL] (06/24/15 2:50 PM) Amylase Lvl [25-115 39 unit/L unit/L] (06/24/15 2:50 PM) 1Result Comment: The eGFR is calculated using the [...] from the National Kidney Disease Education Program ( NKDEP) which additionally recommends that when the eGFR is used in patients with extremes of body mass index for purposes of drug dosing, the eGFR should be mul tiplied by the estimated BMI. URINE AND STOOL Most recent to 1 oldest [Reference Range]: UA Turbidity [Clear] Clear (06/24/15 2:50 PM) UA Color [Yellow] Yellow *NA* (06/24/15 2:50 PM) UA pH [5.0-8.0] 6.0 (06/24/15 2:50 PM) UA Spec Grav 1.021 [<=1.030] (06/24/15 2:50 PM) UA Glucose [Negative Negative mg/dL mg/dL] *NA* (06/24/15 2:50 PM) UA Blood [Negative] Negative (06/24/15 2:50 PM) UA Ketones [Negative Negative mg/dL mg/dL] *NA* (06/24/15 2:50 PM) UA Protein [Negative Negative mg/dL mg/dL] (06/24/15 2:50 PM) UA Urobilinogen <=1.0 mg/dL [0.1-1.0 mg/dL] *NA* (06/24/15 2:50 PM) UA Bili [Negative] Negative *NA* (06/24/15 2:50 PM) UA Leuk Est Negative [Negative] (06/24/15 2:50 PM) UA Nitrite Negative [Negative] (06/24/15 2:50 PM) UA WBC [0-5 /HPF] 1 /HPF (06/24/15 2:50 PM) UA RBC [0-2 /HPF] 1 /HPF (06/24/15 2:50 PM) UA Sq Epi [Few /LPF] Occasional /LPF *NA* (06/24/15 2:50 PM) HEMATOLOGY Most recent to 1 oldest [Reference Range]: WBC [3.7-10.4 K/CMM] 8.6 K/CMM (06/24/15 2:50 PM) RBC [4.20-5.40 4.75 M/CMM M/CMM] (06/24/15 2:50 PM) Hgb [12.0-16.0 g/dL] 14.2 g/dL (06/24/15 2:50 PM) Hct [36.0-48.0 %] 42.5 % (06/24/15 2:50 PM) MCV [80.0-98.0 fL] 89.3 fL (06/24/15 2:50 PM) MCH [27.0-31.0 pg] 29.9 pg (06/24/15 2:50 PM) MCHC [32.0-36.0 33.5 g/dL g/dL] (06/24/15 2:50 PM) RDW [11.5-14.5 %] 13.9 % (06/24/15 2:50 PM) Platelet [133-450 225 K/CMM K/CMM] (06/24/15 2:50 PM) MPV [7.4-10.4 fL] 10.1 fL (06/24/15 2:50 PM) Segs [45.0-75.0 %] 65.1 % (06/24/15 2:50 PM) Lymphocytes 25.6 % [20.0-40.0 %] (06/24/15 2:50 PM) Monocytes [2.0-12.0 7.4 % %] (06/24/15 2:50 PM) Eosinophils [0.0-4.0 1.3 % %] (06/24/15 2:50 PM) Basophils [0.0-1.0 0.6 % %] (06/24/15 2:50 PM) Segs-Bands # 5.6 K/CMM [1.5-8.1 K/CMM] (06/24/15 2:50 PM) Lymphocytes # 2.2 K/CMM [1.0-5.5 K/CMM] (06/24/15 2:50 PM) Monocytes # [0.0-0.8 0.6 K/CMM K/CMM] (06/24/15 2:50 PM) Eosinophils # 0.1 K/CMM [0.0-0.5 K/CMM] (06/24/15 2:50 PM) Immunizations No data available for this [...]
--- OUTSIDE RECORDS SUMMARY | 2018-07-21 05:31 | XMS REPORT | Summary of Care ---
Author Author [facility] Address Unknown Phone Unavailable Encounter HQ Lorrie_ellen(FIN) [id number] Date(s): 12/24/15 - 01/22/16 [facility] Discharge Disposition: Home Attending Physician: Aleyda Mchugh DO Vital Signs No [...]
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
--- OUTSIDE RECORDS SUMMARY | 2018-07-21 05:31 | XMS REPORT | Summary of Care ---
Author Author [facility] Address Unknown Phone Unavailable Encounter HQ [place](FIN) [id number] Date(s): 06/04/16 - 07/03/16 [facility] Discharge Disposition: Home or Self Care Attending Physician: Scott Gutierrez Vital Signs No data available for this [...] and Recorded Vaccine Date Status Refusal Reason influenza virus vaccine, inactivated 06/02/16 Given pneumococcal 23-valent vaccine 06/02/16 Given Procedures Procedure Date Related Diagnosis [...]
--- OUTSIDE RECORDS SUMMARY | 2018-07-21 05:31 | XMS REPORT | Summary of Care ---
Author Author [facility] Organization [facility] Address Unknown Phone Unavailable Encounter [facility]) [id number] Date(s): 06/01/16 - 06/03/16 [facility] [address] [place] [address]- [phone] Final: Unilateral primary osteoarthritis, left knee Discharge Disposition: Home or Self Care Attending Physician: Scott Gutierrez Admitting Physician: Scott Gutierrez Referring Physician: Scott Gutierrez Vital Signs 1 2 3 Most recent to oldest [Reference Range]: 167.64 cm (05/28/16 10:02 AM) Height 98.9 DegF (06/03/16 4:00 PM) 99.4 DegF *HI* (06/03/16 12:00 PM) 99.5 DegF *HI* (06/03/16 11:00 AM) Temperature Oral [96.4-99.1 DegF] 110/75 mmHg (06/03/16 4:00 PM) 103/67 mmHg (06/03/16 12:00 PM) 113/71 mmHg (06/03/16 8:00 AM) Blood Pressure [90-140/60-90 mmHg] 16 BRMIN (06/03/16 4:00 PM) 16 BRMIN (06/03/16 12:00 PM) 18 BRMIN (06/03/16 8:00 AM) Respiratory Rate [14-20 BRMIN] 68 bpm (06/03/16 4:00 PM) 66 bpm (06/03/16 12:00 PM) 74 bpm (06/03/16 8:00 AM) Peripheral Pulse Rate [60-100 bpm] 136.364 kg (05/28/16 10:02 AM) Weight 48.52 m2 (05/28/16 10:02 AM) Body Mass Index Problem List Condition [...] Levaquin Itching Active sulfa drugs Active Medications acetaminophen (ANES) (ANES) Route: IV, Drug form: INJ, Start date: 06/01/16 9:38:00 CDT, Stop date: 06/01/16 10:38:00 CDT Start Date: 06/01/16 Stop Date: 06/01/16 Status: Completed Al hydroxide/Mg hydroxide/simethicone 200 mg-200 mg-20 mg/5 mL oral suspension 30 mL, Route: PO, Drug Form: SUSP, Dosing Weight 136.364, kg, Q4H, PRN Indigesti on, Start date: 06/01/16 10:48:00 CDT, Duration: 30 day, Stop date: 07/01/16 10: 47:00 MANAGER SCIENTIFIC Notes: (aluminum hydroxide-magnesium hyd-simethicone [phone]/5ml 30 ml ud S US) Start Date: 06/01/16 Stop Date: 06/03/16 Status: Discontinued Ambien 5 mg, 1 tab, Route: PO, Drug form: TAB, Bedtime, Start date: 06/01/16 21:00:00 C DT, Duration: 30 day, Stop date: 06/30/16 21:00:00 MANAGER SCIENTIFIC Notes: (Same As: Ambien) Start Date: 06/01/16 Stop Date: 06/03/16 Status: Discontinued Ancef 2 gm, 100 mL, Route: IVPB, Drug form: INJ, [id number], Dosing Weight 136.364, kg, St art date: 06/02/16 20:00:00 CDT, Duration: 1 day, Stop date: 06/03/16 12:00:00 C DT Notes: Same as: Ancef Start Date: 06/02/16 Stop Date: 06/03/16 Status: Completed atenolol 50 mg oral tablet 50 mg, 1 tab, Route: PO, Drug form: TAB, Daily, Start date: 06/02/16 14:00:00 CD T, Duration: 30 day, Stop date: 07/02/16 9:00:00 MANAGER SCIENTIFIC Notes: (Same As:Tenormin) Start Date: 06/02/16 Stop Date: 06/03/16 Status: Discontinued atenolol-chlorthalidone 50 mg-25 mg oral tablet 1 tab, Route: PO, Drug Form: TAB, Dosing Weight 136.364, kg, Daily, Start date: 06/03/16 9:00:00 CDT, Duration: 30 day, Stop date: 07/02/16 9:00:00 MANAGER SCIENTIFIC Start Date: 06/03/16 Stop Date: 06/02/16 Status: Deleted ceFAZolin (ANES) (ANES) Route: IV, Drug form: INJ, Start date: 06/01/16 9:24:00 CDT, Stop date: 06/01/16 10:24:00 CDT Start Date: 06/01/16 Stop Date: 06/01/16 Status: Completed ceFAZolin (SCIP) + sodium chloride 0.9% INJ 100 mL 1 gm, Route: IVPB, Q6H, Dosing Weight 136.364, kg, Start date: 06/01/16 17:42:00 CDT, Duration: 3 doses or times, Stop date: 06/02/16 5:00:00 CDT Notes: (Same As: Zuly Benz) MEDICATION WASTE Product Size: 1000 mgP roduct Wasted: ___ mg Start Date: 06/01/16 Stop Date: 06/02/16 Status: Completed chlorthalidone 25 mg oral tablet 25 mg, 1 tab, Route: PO, Drug form: TAB, Daily, Start date: 06/02/16 14:00:00 CD T, Duration: 30 day, Stop date: 07/02/16 9:00:00 MANAGER SCIENTIFIC Notes: Non-Formulary Drug (Same As: [place]) Start Date: 06/02/16 Stop Date: 06/03/16 Status: Discontinued dexamethasone (ANES) Route: IV, Drug form: INJ, ONCE, Stop date: 06/01/16 10:10:00 CDT Start Date: 06/01/16 Stop Date: 06/01/16 Status: Completed diphenhydrAMINE 12.5 mg, 0.5 tab, Route: PO, Drug form: TAB, Q6H, Dosing Weight 136.364, kg, PRN Itching, Start date: 06/01/16 10:48:00 CDT, Duration: 30 day, Stop date: 10:47:00 MANAGER SCIENTIFIC Start Date: 06/01/16 Stop Date: 06/03/16 Status: Discontinued docusate 100 mg, 1 cap, Route: PO, Drug form: CAP, BID, Dosing Weight 136.364, kg, Start date: 06/01/16 17:00:00 CDT, Duration: 30 day, Stop date: 07/01/16 9:00:00 MANAGER SCIENTIFIC Notes: (Same as: Colace) (Do Not Crush) Start Date: 06/01/16 Stop Date: 06/03/16 Status: Discontinued Effexor XR 37.5 mg, 1 cap, Route: PO, Drug form: ERCAP, Daily, Dosing Weight 136.364, kg, S tart date: 06/02/16 14:00:00 CDT, Duration: 30 day, Stop date: 07/02/16 9:00:00 MANAGER SCIENTIFIC Notes: Do not open, crush, or chew.(Same As: Effexor XR) Start Date: 06/02/16 Stop Date: 06/03/16 Status: Discontinued Effexor XR 37.5 mg oral capsule, extended release 37.5 mg=1 cap, PO, Daily, # 30 cap, 0 Refill(s) Start Date: 05/28/16 Status: Ordered enoxaparin 30 mg, Route: SUB-Q, Drug form: INJ, [id number], Dosing Weight 136.364, kg, Start date: 06/01/16 11:00:00 CDT, Duration: 30 day, Stop date: 06/30/16 23:00:00 MANAGER SCIENTIFIC Start Date: 06/01/16 Stop Date: 06/01/16 Status: Deleted enoxaparin 40 mg, 0.4 mL, Route: SUB-Q, Drug form: INJ, [id number], Dosing Weight 136.364, kg , Consider for obese patients, Start date: 06/01/16 23:00:00 CDT, Duration: 30 d ay, Stop date: 07/01/16 11:00:00 MANAGER SCIENTIFIC Notes: (Same as: Lovenox) Start Date: 06/01/16 Stop Date: 06/03/16 Status: Discontinued famotidine (ANES) Route: IV, Drug form: INJ, ONCE, Stop date: 06/01/16 10:10:00 CDT Start Date: 06/01/16 Stop Date: 06/01/16 Status: Completed hydromorphone 0.3 mg, 0.3 mL, Route: IVP, Drug form: INJ, Q4H, Dosing Weight 136.364, kg, PRN Pain Score 7-10, Start date: 06/01/16 10:48:00 CDT, Duration: 30 day, Stop date: 07/01/16 10:47:00 MANAGER SCIENTIFIC Start Date: 06/01/16 Stop Date: 06/03/16 Status: Discontinued hydromorphone (ANES) Route: INTRATHECAL, Drug form: INJ, ONCE, Stop date: 06/01/16 10:05:00 CDT Start Date: 06/01/16 Stop Date: 06/01/16 Status: Completed hydromorphone (ANES) Route: IV, Drug form: INJ, ONCE, Stop date: 06/01/16 10:10:00 CDT Start Date: 06/01/16 Stop Date: 06/01/16 Status: Completed HYDROmorphone NUT TAPPER 0.5mg/ml 30ml INJ 15 mg 15 mg, 30 mL, Route: IV, Initial Loading Dose: 0 mg, NUT TAPPER Dose: 0.2 mg, NUT TAPPER Locko ut: 8 minutes, Continuous Basal Rate: 0 mg, 4 Hour Limit (In MG): 6, Drug Form: INJ, Continuous, Start date: 06/01/16 11:00:00 CDT, Duration: 30 day, Stop date: 07/01/16 9... Notes: (Same as: Dilaudid) conc=0.5 mg/mlHydromorphone NUT TAPPER Dose: ;Delay: ;Basal: Start Date: 06/01/16 Stop Date: 06/02/16 Status: Discontinued influenza virus vaccine, inactivated 0.5 mL, Route: IM, Drug Form: SUSP, Daily, Start date: 06/02/16 9:00:00 CDT, Sto p date: 06/02/16 13:00:00 CDT Notes: (Same as: Fluzone Quadrivalent, Fluarix Quadrivalent)For 3 years of age a nd older (0.5 mL IM)Shake well before use Start Date: 06/02/16 Stop Date: 06/02/16 Status: Completed Keflex 500 mg oral capsule 500 mg=1 cap, PO, QID, X 10 day, # 40 cap, 0 Refill(s) Start Date: 05/31/16 Stop Date: 06/10/16 Status: Ordered ketOROLAC (ANES) IV, ONCE Start Date: 06/01/16 Stop Date: 06/01/16 Status: Completed Lactated Ringers 1,000 mL 1,000 mL, Rate: 75 ml/hr, Infuse over: 13.3 hr, Route: IV, Dosing Weight 136.364 kg, Total Volume: 1,000, Start date: 06/01/16 10:48:00 CDT, Duration: 30 day, S top date: 07/01/16 10:47:00 MANAGER SCIENTIFIC Start Date: 06/01/16 Stop Date: 06/02/16 Status: Discontinued Lactated Ringers Injection IV 1000 mL 1,000 mL, Rate: 25 ml/hr, Infuse over: 40 hr, Route: IV, Dosing Weight 136.364 k g, Total Volume: 1,000, Start date: 06/01/16 9:09:00 CDT, Duration: 30 day, Stop date: 07/01/16 9:08:00 MANAGER SCIENTIFIC Start Date: 06/01/16 Stop Date: 06/01/16 Status: Discontinued levocetirizine 5 mg oral tablet 5 mg=1 tab, PO, Bedtime, PRN as needed for allergy symptoms, # 30 tab, 0 Refill( s) Start Date: 05/28/16 Stop Date: 06/27/16 Status: Ordered lidocaine (ANES) Route: IV, Drug form: INJ, ONCE, Stop date: 06/01/16 10:00:00 CDT Start Date: 06/01/16 Stop Date: 06/01/16 Status: Completed Lovenox 30 mg/0.3 mL subcutaneous solution 30 mg, SUB-Q, Q12H, X 14 day, # 28 inj, 0 Refill(s) Start Date: 05/31/16 Stop Date: 06/14/16 Status: Ordered LR 1000 mL INJ (ANES) Route: IV, Total Volume: 1,000, Start date: 06/01/16 9:04:00 CDT, Stop date: 10:04:00 CDT Start Date: 06/01/16 Stop Date: 06/01/16 Status: Completed Lunesta 3 mg, Route: PO, Bedtime, Dosing Weight 136.364, kg, Start date: 06/01/16 21:00: 00 CDT, Duration: 30 day, Stop date: 06/30/16 21:00:00 MANAGER SCIENTIFIC Start Date: 06/01/16 Stop Date: 06/01/16 Status: Deleted Lunesta 3 mg, Route: PO, Bedtime, Dosing Weight 136.364, kg, Start date: 06/01/16 21:00: 00 CDT, Duration: 30 day, Stop date: 06/30/16 21:00:00 MANAGER SCIENTIFIC Start Date: 06/01/16 Stop Date: 06/01/16 Status: Deleted midazolam (ANES) Route: IV, Drug form: SOLN, ONCE, Stop date: 06/01/16 10:00:00 CDT Start Date: 06/01/16 Stop Date: 06/01/16 Status: Completed naloxone 0.04 mg, 0.04 mL, Route: IVP, Drug form: INJ, Q2MIN, Dosing Weight 136.364, kg, PRN Narcotic Reversal, Start date: 06/01/16 10:48:00 CDT, Duration: 30 day, Stop date: 07/01/16 9:47:00 MANAGER SCIENTIFIC Notes: (Same as: Narcan) MEDICATION WASTE Product Size: 2 mgProduct Was jamaal: ___ mg Start Date: 06/01/16 Stop Date: 06/03/16 Status: Discontinued [place]ot[place] 7.5/325 oral tablet 1 tab, Route: PO, Drug Form: TAB, Dosing Weight 136.364, kg, Q4H, PRN Pain Score 4-6, Start date: 06/01/16 10:48:00 CDT, Stop date: 07/01/16 10:47:00 MANAGER SCIENTIFIC Notes: Same as [place] 325-7.5mg Do not exceed 4gm/day of acetaminophen. Start Date: 06/01/16 Stop Date: 06/03/16 Status: Discontinued [place] 7.5/325 oral tablet 2 tab, Route: PO, Drug Form: TAB, Dosing Weight 136.364, kg, Q4H, PRN Pain Score 7-10, Start date: 06/01/16 10:48:00 CDT, Stop date: 07/01/16 10:47:00 MANAGER SCIENTIFIC Notes: Same as [place] 325-7.5mg Do not exceed 4gm/day of acetaminophen. Start Date: 06/01/16 Stop Date: 06/03/16 Status: Discontinued Nubain 4 mg, 0.4 mL, Route: IV, Drug form: INJ, ONCE, Dosing Weight 136.364, kg, Start date: 06/01/16 14:16:00 CDT, Stop date: 06/01/16 14:16:00 CDT Notes: (Same As: Nubain) Start Date: 06/01/16 Stop Date: 06/01/16 Status: Completed ondansetron 4 mg, 2 mL, Route: IVP, Drug form: INJ, Q8H, Dosing Weight 136.364, kg, PRN Naus ea & Vomiting, Start date: 06/01/16 10:48:00 CDT, Duration: 30 day, Stop date: 07/01/16 10:47:00 MANAGER SCIENTIFIC Notes: (Same as: Kinjal) MEDICATION WASTE Product Size: 4 mgProduct Was jamaal: ___ mg Start Date: 06/01/16 Stop Date: 06/03/16 Status: Discontinued ondansetron (ANES) Route: IV, Drug form: INJ, ONCE, Stop date: 06/01/16 11:05:00 CDT Start Date: 06/01/16 Stop Date: 06/01/16 Status: Completed pantoprazole 40 mg, 1 tab, Route: PO, Drug form: ECTAB, Before Dinner, Dosing Weight 136.364, kg, Start date: 06/02/16 16:30:00 CDT, Duration: 30 day, Stop date: 07/01/16 16 :30:00 MANAGER SCIENTIFIC Notes: Tablet should not be chewed or crushed.(Same as: Protonix) Start Date: 06/02/16 Stop Date: 06/03/16 Status: Discontinued Phenergan 25 mg, 1 tab, Route: PO, Drug form: TAB, Q4H, Dosing Weight 136.364, kg, PRN All ergic reaction, Start date: 06/01/16 21:20:00 CDT, Duration: 30 day, Stop date: 07/01/16 21:19:00 MANAGER SCIENTIFIC Notes: (Same as: Phenergan) Start Date: 06/01/16 Stop Date: 06/02/16 Status: Discontinued Phenergan 25 mg, 1 tab, Route: PO, Drug form: TAB, Q4H, Dosing Weight 136.364, kg, PRN All ergic reaction, Start date: 06/02/16 18:12:00 CDT, Duration: 3 day, Stop date: 18:11:00 CDT Notes: (Same as: Phenergan) Start Date: 06/02/16 Stop Date: 06/03/16 Status: Discontinued pneumococcal 23-valent vaccine 0.5 mL, Route: IM, Drug Form: INJ, Daily, Start date: 06/02/16 9:00:00 CDT, Stop date: 06/02/16 13:00:00 CDT Notes: (Same as: Pneumovax 23) Refrigerate Start Date: 06/02/16 Stop Date: 06/02/16 Status: Completed propofol (ANES) Route: IV, Drug form: INJ, ONCE, Stop date: 06/01/16 10:00:00 CDT Start Date: 06/01/16 Stop Date: 06/01/16 Status: Completed rocuronium (ANES) Route: IV, Drug form: INJ, ONCE, Stop date: 06/01/16 10:00:00 CDT Start Date: 06/01/16 Stop Date: 06/01/16 Status: Completed succinylcholine (ANES) Route: IV, Drug form: INJ, ONCE, Stop date: 06/01/16 10:00:00 CDT Start Date: 06/01/16 Stop Date: 06/01/16 Status: Completed tranexamic acid (ANES) (ANES) Route: IV, Drug form: INJ, Start date: 06/01/16 10:26:00 CDT, Stop date: 6 11:26:00 CDT Start Date: 06/01/16 Stop Date: 06/01/16 Status: Completed trazodone 50 mg oral tablet 50 mg, 1 tab, Route: PO, Drug form: TAB, Bedtime, Dosing Weight 136.364, kg, Sta rt date: 06/02/16 21:00:00 CDT, Duration: 30 day, Stop date: 07/01/16 21:00:[address] Notes: (Same As: Desyrel) Start Date: 06/02/16 Stop Date: 06/03/16 Status: Discontinued Tylenol 650 mg, 2 tab, Route: PO, Drug form: TAB, Q6H, Dosing Weight 136.364, kg, PRN Fo r Temp > 100.4 F, Start date: 06/01/16 10:48:00 CDT, Duration: 30 day, Stop date: 07/01/16 10:47:00 MANAGER SCIENTIFIC Notes: Do not exceed 4 gm/day. (Same as: Tylenol) Start Date: 06/01/16 Stop Date: 06/03/16 Status: Discontinued Valium 5 mg, 1 mL, Route: IV, Drug form: INJ, Q6H, Dosing Weight 136.364, kg, PRN Spasm , Start date: 06/01/16 10:48:00 CDT, Duration: 30 day, Stop date: 07/01/16 10:47 :00 MANAGER SCIENTIFIC Notes: (Same as: Valium)WASTE: F/P - Black; E - White/Blue Start Date: 06/01/16 Stop Date: 06/03/16 Status: Discontinued Vitamin D3 50,000 IntlUnit, PO, Q7D, 0 Refill(s) Start Date: 05/28/16 Status: Ordered Vitamin D3 50,000 IntlUnit, 1 cap, Route: PO, Drug form: CAP, QWed, Dosing Weight 136.364, kg, Start date: 06/02/16 13:20:00 CDT, Duration: 30 day, Stop date: 06/30/16 9:0 0:00 MANAGER SCIENTIFIC Notes: (Same as: Vitamin D3-50) Start Date: 06/02/16 Stop Date: 06/03/16 Status: Discontinued Xanax 0.25 mg oral tablet 0.25 mg, 1 tab, Route: PO, Drug form: TAB, TID, Dosing Weight 136.364, kg, PRN A nxiety, Start date: 06/01/16 21:15:00 CDT, Duration: 30 day, Stop date: 07/01/16 21:14:00 MANAGER SCIENTIFIC Notes: With food or milk(Same as: Xanax) Start Date: 06/01/16 Stop Date: 06/03/16 Status: Discontinued ZyrTEC 10 mg, 2 tab, Route: PO, Drug form: TAB, Daily, Dosing Weight 136.364, kg, Start date: 06/03/16 9:00:00 CDT, Duration: 2 day, Stop date: 06/04/16 9:00:00 CDT Notes: (Same As: Zyrtec) Start Date: 06/03/16 Stop Date: 06/03/16 Status: Discontinued ZyrTEC 10 mg oral tablet 10 mg=1 tab, PO, Daily, # 30 tab, 0 Refill(s) Start Date: 05/28/16 Stop Date: 06/27/16 Status: Ordered Results BLOOD BANK RESULTS 1 2 3 Most recent to oldest [Reference Range]: A POS *Unknown* (05/28/16 10:15 AM) ABO/Rh Negative (05/28/16 10:15 AM) Antibody Scrn Product available (05/28/16 10:03 AM) RBC product ELECTROLYTES 1 2 3 Most recent to oldest [Reference Range]: 137 mEq/L (06/03/16 5:01 AM) 139 mEq/L (05/28/16 10:15 AM) Sodium Lvl [135-145 mEq/L] 3.4 mEq/L *LOW* (06/03/16 5:01 AM) 3.9 mEq/L (05/28/16 10:15 AM) Potassium Lvl [3.5-5.1 mEq/L] 101 mEq/L (06/03/16 5:01 AM) 102 mEq/L (05/28/16 10:15 AM) Chloride Lvl [95-109 mEq/L] 29 mEq/L (06/03/16 5:01 AM) 29 mEq/L (05/28/16 10:15 AM) CO2 [24-32 mEq/L] 10.4 mEq/L (06/03/16 5:01 AM) 11.9 mEq/L (05/28/16 10:15 AM) AGAP [10.0-20.0 mEq/L] CHEM PANEL 1 2 3 Most recent to oldest [Reference Range]: 0.80 mg/dL (06/03/16 5:01 AM) 1.00 mg/dL (06/01/16 5:46 PM) 0.80 mg/dL (05/28/16 10:15 AM) Creatinine Lvl [0.50-1.40 mg/dL] 83 mL/min/1.73m2 1 *NA* (06/03/16 5:01 AM) 64 mL/min/1.73m2 2 *NA* (06/01/16 5:46 PM) 83 mL/min/1.73m2 3 *NA* (05/28/16 10:15 AM) eGFR 12 mg/dL (06/03/16 5:01 AM) 16 mg/dL (05/28/16 10:15 AM) BUN [7-22 mg/dL] 108 mg/dL *HI* (06/03/16 5:01 AM) 94 mg/dL (05/28/16 10:15 AM) Glucose Lvl [70-99 mg/dL] 8.3 mg/dL *LOW* (06/03/16 5:01 AM) 9.3 mg/dL (05/28/16 10:15 AM) Calcium Lvl [8.5-10.5 mg/dL] 1Result Comment: The eGFR is calculated using [...] be mul tiplied by the estimated BMI. 2Result Comment: The eGFR is calculated using the [...] be mul tiplied by the estimated BMI. 3Result Comment: The eGFR is calculated using the [...] be mul tiplied by the estimated BMI. HEMATOLOGY 1 2 3 Most recent to oldest [Reference Range]: 10.5 K/CMM *HI* (06/03/16 5:01 AM) 14.2 K/CMM *HI* (06/02/16 6:52 AM) 10.5 K/CMM *HI* (05/28/16 10:15 AM) WBC [3.7-10.4 K/CMM] 3.84 M/CMM *LOW* (06/03/16 5:01 AM) 4.07 M/CMM *LOW* (06/02/16 6:52 AM) 4.80 M/CMM (05/28/16 10:15 AM) RBC [4.20-5.40 M/CMM] 11.3 g/dL *LOW* (06/03/16 5:01 AM) 12.1 g/dL (06/02/16 6:52 AM) 13.8 g/dL (05/28/16 10:15 AM) Hgb [12.0-16.0 g/dL] 33.6 % *LOW* (06/03/16 5:01 AM) 36.2 % (06/02/16 6:52 AM) 42.5 % (05/28/16 10:15 AM) Hct [36.0-48.0 %] 87.5 fL (06/03/16 5:01 AM) 88.9 fL (06/02/16 6:52 AM) 88.4 fL (05/28/16 10:15 AM) MCV [80.0-98.0 fL] 29.4 pg (06/03/16 5:01 AM) 29.9 pg (06/02/16 6:52 AM) 28.8 pg (05/28/16 10:15 AM) MCH [27.0-31.0 pg] 33.6 g/dL (06/03/16 5:01 AM) 33.6 g/dL (06/02/16 6:52 AM) 32.5 g/dL (05/28/16 10:15 AM) MCHC [32.0-36.0 g/dL] 14.2 % (06/03/16 5:01 AM) 14.6 % *HI* (06/02/16 6:52 AM) 14.8 % *HI* (05/28/16 10:15 AM) RDW [11.5-14.5 %] 180 K/CMM (06/03/16 5:01 AM) 201 K/CMM (06/02/16 6:52 AM) 228 K/CMM (06/01/16 5:46 PM) Platelet [133-450 K/CMM] 9.0 fL (06/03/16 5:01 AM) 9.1 fL (06/02/16 6:52 AM) 9.4 fL (05/28/16 10:15 AM) MPV [7.4-10.4 fL] 63.3 % (06/03/16 5:01 AM) 83.4 % *HI* (06/02/16 6:52 AM) 66.9 % (05/28/16 10:15 AM) Segs [45.0-75.0 %] 23.1 % (06/03/16 5:01 AM) 8.2 % *LOW* (06/02/16 6:52 AM) 24.2 % (05/28/16 10:15 AM) Lymphocytes [20.0-40.0 %] 11.0 % (06/03/16 5:01 AM) 8.3 % (06/02/16 6:52 AM) 7.3 % (05/28/16 10:15 AM) Monocytes [2.0-12.0 %] 1.6 % (06/03/16 5:01 AM) 0.9 % (05/28/16 10:15 AM) Eosinophils [0.0-4.0 %] 1.0 % (06/03/16 5:01 AM) 0.1 % (06/02/16 6:52 AM) 0.7 % (05/28/16 10:15 AM) Basophils [0.0-1.0 %] 6.6 K/CMM (06/03/16 5:01 AM) 11.9 K/CMM *HI* (06/02/16 6:52 AM) 7.0 K/CMM (05/28/16 10:15 AM) Segs-Bands # [1.5-8.1 K/CMM] 2.4 K/CMM (06/03/16 5:01 AM) 1.2 K/CMM (06/02/16 6:52 AM) 2.5 K/CMM (05/28/16 10:15 AM) Lymphocytes # [1.0-5.5 K/CMM] 1.2 K/CMM *HI* (06/03/16 5:01 AM) 1.2 K/CMM *HI* (06/02/16 6:52 AM) 0.8 K/CMM (05/28/16 10:15 AM) Monocytes # [0.0-0.8 K/CMM] 0.2 K/CMM (06/03/16 5:01 AM) 0.1 K/CMM (05/28/16 10:15 AM) Eosinophils # [0.0-0.5 K/CMM] 0.1 K/CMM (06/03/16 5:01 AM) 0.1 K/CMM (05/28/16 10:15 AM) Basophils # [0.0-0.2 K/CMM] 12.5 seconds (05/28/16 10:15 AM) PT [12.0-14.7 seconds] 0.91 (05/28/16 10:15 AM) INR [0.85-1.17] 22.4 seconds *LOW* (06/01/16 5:46 PM) 24.8 seconds (05/28/16 10:15 AM) PTT [22.9-35.8 seconds] Immunizations Given and Recorded Vaccine Date Status [...]
--- OUTSIDE RECORDS SUMMARY | 2018-07-21 05:31 | XMS REPORT | Summary of Care ---
Author Author [facility] Address Unknown Phone Unavailable Encounter [facility] Lorrie_ellen(FIN) [id number] Date(s): 01/23/16 - 02/21/16 [facility] Discharge Disposition: Home Attending Physician: Aleyda Mchugh [...]
--- OUTSIDE RECORDS SUMMARY | 2018-07-21 05:31 | XMS REPORT | Summary of Care ---
Author Author [facility] Address Unknown Phone Unavailable Encounter [facility] Lorrie_ellen(FIN) [id number] Date(s): 11/19/15 - 12/18/15 [facility] Discharge Disposition: Home Attending Physician: Aleyda [...]
--- OUTSIDE RECORDS SUMMARY | 2018-07-21 05:31 | XMS REPORT | Summary of Care ---
Author Author [facility] Address Unknown Phone Unavailable Encounter [facility]) [id number] Date(s): 08/05/16 - 09/03/16 [facility] Discharge Disposition: Home or Self Care [...]
--- OUTSIDE RECORDS SUMMARY | 2018-07-21 05:31 | XMS REPORT | Summary of Care ---
Author Author [facility] Address Unknown Phone Unavailable Encounter [facility] Lorrie_ellen(FIN) [id number] Date(s): 09/24/15 - 10/23/15 [facility] Discharge Disposition: Home Attending Physician: Aleyda Mchugh [...]
--- OUTSIDE RECORDS SUMMARY | 2018-07-21 05:31 | XMS REPORT | Summary of Care ---
Author Author [facility] Organization [facility] Address Unknown Phone Unavailable Encounter [facility] Lorrie_ellen(FIN) [id number] Date(s): 05/03/16 - 05/03/16 [facility] [address] [place] [address] [phone] Discharge Disposition: Home or Self Care Attending Physician: Magali Mena MD Referring Physician: Magali Mena MD Vital Signs No [...]
--- OUTSIDE RECORDS SUMMARY | 2018-07-21 05:31 | XMS REPORT ---
Author Author [facility] Organization [facility] Address Unknown Phone Unavailable Care Team Providers Care News Librarian Name Role Phone ANGUS MODI Unavailable Unavailable Payers Payer Name Policy Type Policy Number Effective Date Expiration Date Problems This patient has no known problems. Allergies, Adverse Reactions, Alerts Allergy Name Allergy Type Status Severity Reaction(s) Onset Date Inactive Date Treating Clinician Comments sulfamethoxazole DA Active SV 2018-02-01 00:00:00 trimethoprim DA Active SV 2018-02-01 00:00:00 hydrogen peroxide DA Active MO 2018-02-01 00:00:00 levofloxacin DA Active SV 2018-02-01 00:00:00 Medications This patient has no known medications. Results Test Description Test Time Test Comments Text Results Atomic Results Result Comments CHEST 2 VIEWS 2018-07-18 13:59:00 [place] [address] Patient Name: EDUARDO ANGELES MR #: [id number] : 1960 Age/Sex: 58/F Req #: [id number] Adm Physician: Ordered by: ANGUS MODI DPM Report #: [id number] Location: OR Room/Bed: Procedure: [id number] DX/CHEST 2 VIEWS Exam Date: 07/18/18 Exam Time: 1345 REPORT STATUS: Signed EXAMINATION: CHEST 2 VIEWS INDICATION: Preop. Right foot surgery. Foot pain. COMPARISON: None FINDINGS: TUBES and LINES: None. LUNGS: Lungs are well inflated. Lungs are clear. There is no evidence of pneumonia or pulmonary edema. PLEURA: No pleural effusion or pneumothorax. HEART AND MEDIASTINUM: The cardiomediastinal silhouette is unremarkable. BONES AND SOFT TISSUES: No acute osseous lesion. Soft tissues are unremarkable. UPPER ABDOMEN: No free air under the diaphragm. IMPRESSION: No acute thoracic abnormality. Signed by: Dr. Saskia Garcia M.D. on 07/18/2018 1:59 PM Dictated By: SASKIA GARCIA MD, MD [id number] Transcribed By: CARO on 07/18/18 [id number] COPY TO: ANGUS MODI DPM
--- OUTSIDE RECORDS SUMMARY | 2018-07-21 05:31 | XMS REPORT | Summary of Care ---
Author Author [facility] Address Unknown Phone Unavailable Encounter [facility] [place]) [id number] Date(s): 07/05/16 - 08/03/16 [facility] Discharge Disposition: Home or Self Care [...]
[2018-07-21 10:30] VITALS: BP 150/92
--- NOTE | 2018-07-21 13:31 | Operative Report ---
DATE OF PROCEDURE: July 21, 2018 PREOPERATIVE DIAGNOSES 1. Heel spur, right foot. 2. 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 POSTOPERATIVE DIAGNOSES 1. Heel spur, right foot. 2. 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 TITLE OF OPERATION 1. Excision of heel spur, right foot. 2. Arthroplasty, 5th digit, with remodeling of lateral bone spur, right foot. ANESTHESIA: General endotracheal. HEMOSTASIS: A right thigh tourniquet at 350 mmHg. PROCEDURE IN DETAIL: The patient was taken to the operating room in a mildly sedated state and placed upon the operating table in supine position. Following induction of general anesthetic, the right lower extremity was elevated to 60 degrees to exsanguinate before inflating the pneumatic thigh tourniquet to 350 mmHg to create hemostasis. The right lower extremity was placed upon the operating table prior to performing the following procedures: Procedure #1: Excision of heel spur of the right foot. An approximate 4-cm medial incision was placed along the plantar medial aspect of the right heel. The incision was deepened via sharp and blunt dissection down to the level of the dorsal capsular structure. Care was taken to identify and retract all vital structures encountered. The plantar protruding heel spur was identified via fluoroscopy, and an osteotome and mallet were used to resect the spur all the way across. The spur itself was removed and irrigated with copious amounts of sterile saline solution. A power rasp was used to further smooth the heel where the former spur was. The plantar fascia was identified and noted to be intact. There was an area that had previously been ruptured. There was no particular rupture noted at this point. After copious irrigation, the fascia was placed in approximation to its insertion into the area where the heel spur had previously been and noted to be in adequate apposition. The void left by the spur was filled with a TLS drain. Deep closure and capsular repair were 3-0 Vicryl. Subcutaneous closure was 4-0 Vicryl, and skin closure was 4-0 nylon. The area was blocked with 0.5 Marcaine and Decadron LA. Human tissue allograft was also injected into the area of the ruptured plantar fascia. Attention was then directed to the 5th digit where an adductovarus 5th digit was noted. There was prominence laterally, and the lateral aspect of the distal phalanx had been ambulated upon due to its position. Two converging semielliptical incisions were placed overlying the head of the proximal phalanx. These were deepened and the elliptical skin wedge resected. The tissue underneath was evaluated and a transverse tenotomy performed. The head of the proximal phalanx was resected utilizing an oscillating saw. The lateral aspect of the intermediate phalanx where prominence of bone was noted was rasped smooth through the same incision. The area was irrigated with copious amounts of sterile saline solution. The extensor tendon repair was 3-0 Vicryl, subcutaneous closure was 4-0 Vicryl, and skin closure was 4-0 nylon. The areas of surgery were then blocked with 0.5 Marcaine and Decadron LA. A small segment of the remaining human tissue allograft was injected into that area as well. The area was blocked with 0.5 Marcaine, and the appropriate mildly compressive dressings were applied. Patient left the operating room with vital signs stable and in apparent satisfactory condition, after tolerating both anesthetic and procedure very well. Job#: [id number]
== END | disposition home or self-care (01) ==
LOC: OR 05:26
PROVIDERS: ATTEND Podiatrist Foot Surgery
DX: M77.31 Calcaneal spur, right foot (principal); M20.41 Other hammer toe(s) (acquired), right foot; M77.51 Other enthesopathy of right foot and ankle; K21.9 Gastro-esophageal reflux disease without esophagitis; I10 Essential (primary) hypertension; E11.9 Type 2 diabetes mellitus without complications; M48.00 Spinal stenosis, site unspecified; K44.9 Diaphragmatic hernia without obstruction or gangrene; K57.90 Diverticulosis of intestine, part unspecified, without perforation or abscess without bleeding; K76.0 Fatty (change of) liver, not elsewhere classified; E78.5 Hyperlipidemia, unspecified; I95.1 Orthostatic hypotension; G47.33 Obstructive sleep apnea (adult) (pediatric); F41.9 Anxiety disorder, unspecified; Z91.19 Patient's noncompliance with other medical treatment and regimen; Z88.6 Allergy status to analgesic agent; Z88.2 Allergy status to sulfonamides; Z88.8 Allergy status to other drugs, medicaments and biological substances; Z91.013 Allergy to seafood; Z01.810 Encounter for preprocedural cardiovascular examination; Z01.812 Encounter for preprocedural laboratory examination; Z01.818 Encounter for other preprocedural examination; Z96.652 Presence of left artificial knee joint
CPT/HCPCS: 28119; 28285; 36415; 71046; 80048; 85025; 93005; J0690; J1100; J1170; J1885; J2001; J2175; J2250; J2405; J2704; Q4100; 76000